=== PATIENT | male | born 1995 | race American Indian/Alaskan Native ===

== ENCOUNTER 2017-07-04 08:45 | Emergency (ER) | payer MEDICARE ==
[2017-07-04 09:34] VITALS: TEMP 98.6
[2017-07-04] MEDS ORDERED: DiphenhydrAMINE 50 mg/ml Inj IVP STA (10:18)
--- NOTE | 2017-07-04 10:58 | ED PDOC ---
Arrival/HPI - General Chief Complaint: Allergic Reaction Time Seen by Provider: 07/04/17 10:17 Historian: Patient - History of Present Illness Narrative History of Present Illness (Text): 07/04/17 10:53 21-year-old male presents today with swelling to the lower lip since yesterday morning. pt states 2 nights ago he ate seafood, went to sleep and then woke up with swelling to the lower lip. pt denies cp or sob. denies fever/chills. denies sore throat. pt states he took benadryl twice yesterday with slight improvement. pt also states he recently completed antibiotics for dental procedure last week. pt denies hx of allergies to any medications or food. no other complaints. Time/Duration: Other (2 days) Past Medical History - Provider Review Nursing Documentation Reviewed: Yes - Travel History Have you recently traveled outside [place] w/in the past 3 mons?: No - Tetanus Immunization Tetanus Immunization: Unknown - Cardiac Hx Cardiac Disorders: No - Pulmonary Hx Respiratory Disorders: Yes Hx Asthma: Yes - Neurological Hx Neurological Disorder: No - HEENT Hx HEENT Disorder: No - Renal Hx Renal Disorder: No - Endocrine/Metabolic Hx Endocrine Disorders: No - Hematological/Oncological Hx Blood Disorders: No - Integumentary Hx Dermatological Disorder: No - Musculoskeletal/Rheumatological Hx Musculoskeletal Disorders: No - Gastrointestinal Hx Gastrointestinal Disorders: No - Genitourinary/Gynecological Hx Genitourinary Disorders: No - Psychiatric Hx Psychophysiologic Disorder: No Hx Substance Use: No Family/Social History - Physician Review Nursing Documentation Reviewed: Yes Family/Social History: Unknown Family HX Smoking Status: Heavy Smoker > 10 Cigarettes Daily Hx Alcohol Use: No Hx Substance Use: No Allergies/Home Meds Allergies/Adverse Reactions: Allergies No Known Allergies Allergy (Verified 07/04/17 09:27) Home Medications: Home Meds Medication Instructions Recorded Confirmed Acetaminophen with Codeine 1 tab PO Q8 PRN 07/04/17 07/04/17 [Tylenol with Codeine #3 Tablet] Amoxicillin [Amoxicillin] 500 mg PO Q8 07/04/17 07/04/17 Review of Systems - Review of Systems Constitutional: absent: Fatigue, Fevers Eyes: absent: Vision Changes ENT: Other (lower lip swelling). absent: Sore Throat, Sinus Congestion Respiratory: absent: SOB, Cough, Wheezing Cardiovascular: absent: Chest Pain, Palpitations Gastrointestinal: absent: Abdominal Pain, Nausea, Vomiting Skin: absent: Rash, Pruritis Neurological: absent: Headache, Dizziness Psychiatric: absent: Anxiety, Depression Physical Exam Vital Signs Reviewed: Yes Vital Signs Temp Pulse Resp BP Pulse Ox 07/04/17 12:38 98.6 F 65 19 132/85 100 07/04/17 09:30 98.6 F 75 16 116/71 98 Temperature: Afebrile Blood Pressure: Normal Pulse: Regular Respiratory Rate: Normal Appearance: Positive for: Well-Appearing, Non-Toxic, Comfortable Pain Distress: None Mental Status: Positive for: Alert and Oriented X 3 - Systems Exam Head: Present: Atraumatic, Swelling (+ swelling of lower lip; no surrounding erythema or lesions. ) Pupils: Present: PERRL Extroacular Muscles: Present: EOMI Conjunctiva: Present: Normal Mouth: Present: Moist Mucous Membranes, Normal Tounge, Normal Teeth. No: Drooling, Trismus, Normal Lips (+ lower lip swelling) Pharnyx: Present: Normal, Other (+ minimal amount of uvular edema). No: ERYTHEMA, EXUDATE, TONSILS ENLARGED, Peritonsilar Swelling, Uvular Deviation, Muffled/Hoarse Voice, Strider Nose (External): Present: Atraumatic Nose (Internal): Present: Normal Inspection Neck: Present: Normal Range of Motion, Trachea Midline. No: Meningeal Signs, Lymphadenopathy Respiratory/Chest: Present: Clear to Auscultation, Good Air Exchange. No: Respiratory Distress, Accessory Muscle Use, Wheezes, Decreased Breath Sounds, Retracting, Rhonchi, Tachypneic Cardiovascular: Present: Regular Rate and Rhythm, Normal S1, S2. No: Murmurs Abdomen: No: Tenderness Back: Present: Normal Inspection Upper Extremity: Present: Normal ROM Lower Extremity: Present: Normal ROM Neurological: Present: GCS=15, Speech Normal Skin: Present: Warm, Dry, Normal Color. No: Rashes Psychiatric: Present: Alert, Oriented x 3 Medical Decision Making ED Course and Treatment: 07/04/17 11:01 Patient is nontoxic well-appearing in no distress with stable vital signs. pt with swollen lower lip x 2 days. Lungs are clear to auscultation bilaterally there is no wheezing noted. The airway is patent. there is minimal swelling to the lower lip. Benadryl 50 mg IV Solu-Medrol 125 mg IV Pepcid 20 mg IV there is a small lump noted within the left side of the lower lip; will cover with bactrim for possible abscess. Patient reassessment: pt was observed in the ER. After medications patient is feeling better the lungs are clear to auscultation bilaterally the airway is patent the patient is speaking in full sentences. I advised taking Benadryl every 6 hours as needed for itch as well as prednisone daily x4 days. Advised patient to follow up with primary care physician within the next 2 days and return if symptoms worsen persist or if new symptoms develop. advised patient to use epipen when indicated. pt was advised to avoid seafood, penicillin or tylenol #3. Patient verbalizes understanding of discharge instructions and need for immediate followup. all aspects of this case were discussed the attending of record. Impression :Allergic reaction, angioedema, r/o abscess Benadryl every 6 hours as needed for itch Prednisone once daily x4 days bactrim; 1 tablet twice daily x 7 days. Pepcid one tablet daily Follow up with the primary care physician tomorrow Return if symptoms worsen persist or if new symptoms develop: Shortness of breath, feeling of throat closing, difficulty speaking or any other concerning symptoms develop. - Medication Orders Current Medication Orders: Discontinued Medications Diphenhydramine HCl (Benadryl) 50 mg IVP STAT STA Stop: 07/04/17 10:19 Last Admin: 07/04/17 10:57 Dose: 50 mg IVP Administration Document 07/04/17 10:57 [email or web address] (Rec: 07/04/17 10:57 [id number]) Charges for Administration # of IVP Administrations 1 Famotidine (Pepcid) 20 mg IVP STAT STA Stop: 07/04/17 10:19 Last Admin: 07/04/17 10:57 Dose: 20 mg IVP Administration Document 07/04/17 10:57 [email or web address] (Rec: 07/04/17 10:57 [id number]) Charges for Administration # of IVP Administrations 1 Methylprednisolone (Solu-Medrol) 125 mg IVP STAT STA Stop: 07/04/17 10:19 Last Admin: 07/04/17 10:58 Dose: 125 mg IVP Administration Document 07/04/17 10:58 [email or web address] (Rec: 07/04/17 10:58 [email or web address] [id number]) Charges for Administration # of IVP Administrations 1 Disposition/Present on Arrival - Present on Arrival Any Indicators Present on Arrival: No History of DVT/PE: No History of Uncontrolled Diabetes: No Urinary Catheter: No History of Decub. Ulcer: No History Surgical Site Infection Following: None - Disposition Have Diagnosis and Disposition been Completed?: Yes Diagnosis: Allergic reaction Disposition: HOME/ ROUTINE Disposition Time: 12:19 Patient Plan: Discharge Patient Problems: Current Active Problems Problem Status Onset Allergic reaction Acute Condition: GOOD Discharge Instructions (ExitCare): Angioedema, Allergy Skin Testing Additional Instructions: Benadryl every 6 hours as needed for itch Prednisone once daily x4 days Pepcid one tablet daily Follow up with the primary care physician tomorrow Return if symptoms worsen persist or if new symptoms develop: Shortness of breath, feeling of throat closing, difficulty speaking or any other concerning symptoms develop. Prescriptions: DiphenhydrAMINE [Benadryl] 25 mg PO Q6H #20 cap Epinephrine HCl [Epipen Auto-Injector] 0.3 mg IM PRN PRN #1 packet PRN Reason: Anaphylaxis Famotidine [Pepcid] 20 mg PO DAILY #30 tab predniSONE [predniSONE Tab] 3 tab PO DAILY #12 tab Sulfamethoxazole/Trimethoprim [Bactrim DS 800 mg-160 mg] 1 tab PO BID #14 tab Referrals: Viola Moon MD [Staff Provider] - Follow up with primary Rachid Meza MD [Staff Provider] - Follow up with primary Forms: [employer] (Thai), WORK NOTE
[2017-07-04 12:38] VITALS: BP 132/85; PULSE 65
[2017-07-04 13:05] VITALS: RESP 18; O2SAT 99
== END 2017-07-04 13:06 | disposition home or self-care (01) ==
LOC: ED 08:45 → EDSEX 08:45 → ED 13:06
DX: T78.49XA Other allergy, initial encounter (principal); X58.XXXA Exposure to other specified factors, initial encounter
CPT/HCPCS: 96374; 96375; 99283; J1200; J2930